=== PATIENT | female | born 1960 | race Caucasian/White ===

== ENCOUNTER 2017-01-20 18:13 | Inpatient (IN) | payer OTHER ==
[~2017-01-20] VITALS: Ht 165.1 cm; Wt 80.8 kg
[2017-01-20 19:41] VITALS: BP 137/85; PULSE 97; RESP 18; O2SAT 92
[2017-01-20] MEDS ORDERED: 0.9% Sodium Chloride 1,000 ML IV SCH (20:28)
[2017-01-20] MEDS ORDERED: Polyethylene Glycol (PEG) 17 Gm Powder PO PRN (20:30)
[2017-01-20] MEDS ORDERED: Alum-Mag Hydrox-Simeth 30 mL Suspension PO PRN (20:30)
[2017-01-20] MEDS ORDERED: Ondansetron 2 mg/mL 2 mL Inj IVPUSH PRN (20:30)
[2017-01-20] MEDS: 0.9% Sodium Chloride 1,000 ML IV ONE (20:45)
[2017-01-20 21:39] LABS: BASOPHILS % (AUTO) 0.1 % (0-3); EOSINOPHILS % (AUTO) 2.9 % (0-5); Mean Corpuscular Hemoglobin 32.3 pg (27.0-35.0); Mean Corpuscular Volume 89.9 fL (81-100); NEUTROPHILS % (AUTO) 69.9 % (40-74); Platelet Count 333 bil/L (150-400)
--- NOTE | 2017-01-20 21:40 | PCM.HPMED ---
Subjective Date of Service Jan 20, 2017 Primary Provider: Admitting Physician: Sheba Cuevas DO Primary Care Physician: Nolan Attending Physician: Sheba Cuevas DO Admit Status: Direct Admit Chief Complaint: Abdominal pain History of Present Illness: Ms. Godinez is a 56-year-old female with reported past medical history of hypertension and hyperlipidemia who presented to the urgent care today secondary to severe stomach pains/cramps times 2 days. Patient states she was feeling normal throughout the weekend when she developed slight stomach cramps on Wednesday night 01/17/2017. This lasted through following day and into Wednesday night when she developed diarrhea. She reports having diarrhea 5-6 times, does not remember any blood in her diarrhea and reports one additional episode this morning which is described as dark green in color. She states accompanying nausea with dizziness and some low-grade fevers at home 99.4 she still has severe stomach cramps, and has not made much to eat or drink in the last few days secondary to this. She also reports mild shortness of breath and mild headache. She denies chest pain, visual problems numbness or tingling in her extremities. She lives in [place] with her daughter, son-in-law and 2 grandchildren none of which are sick. She does state that her elderly mother lives in [place] is currently feeling unwell with similar symptoms. She is not followed by a primary care doctor, last saw a primary care Dr. Vyas over 3 years ago. Reports her last colonoscopy to be 8 years prior and perhaps was reported to have some polyps. She is a daily smoker, drinks hard liquor ( rum and Coke) 4 drinks per week, denies drug use. Reports no history of inflammatory bowel disease. No reported recent antibiotic use or recent hospitalizations. Patient went to the urgent care today and was sent to [facility] for CT imaging which showed "severe inflammation or infection in the terminal ileum. Findings cause an adynamic ileus with possible mild partial physiologic obstruction in the remaining small bowel." Review of Systems: A comprehensive review of systems was conducted with the patient and found to be negative except as above in the history of present illness. Allergies Coded Allergies: No Known Allergies (Unverified , 01/20/17) Home Medications Patient reports not PMH Patient reports hypertension and hyperlipidemia Surgical History Patient reports tubal ligation surgery 1989 Family History Mother with diverticulitis Father suffered from heart attack requiring pacemaker placement and had "colon issues" Sr. 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 She is not , has 5 children and 6 grandchildren Exam Vital Signs Vital Sign - Last Date Time Temp Pulse Resp B/P Pulse Ox O2 Delivery O2 Flow Rate FiO2 01/20/17 19:41 36.7 97 18 137/85 92 Room Air Exam General: Awake and alert laying in hospital bed in no acute distress, well- developed, well-nourished, appropriately interactive. Sister present in room at time of exam HEENT: Normocephalic, atraumatic. External ears without defect. Bilateral xanthomas periorbital area. Pupils equal, round, and reactive to light and accommodation. Anicteric sclerae, moist conjunctivae, and no lid lag. Oropharynx free of erythema and cobble stoning with moist mucosa. Neck: Supple with full range of motion. No jugular venous distension. No bruits. Cardiovascular: Regular rate and rhythm with no murmurs, rubs, or gallops appreciated Pulmonary: Clear to auscultation bilaterally with no crackles, wheezes, or rhonchi. Normal respiratory effort with no use of accessory muscles. Abdomen: Bowel tones present. Soft, tender to palpation 4 quadrants most specifically left upper quadrant, right lower quadrant and epigastric area. Nondistended. No rigidity or guarding Extremities: No clubbing, cyanosis, edema. Mycosis lower extremities. Upper extremity mild clubbing of nails Skin: Normal temperature, poor turgor. Skin appears to be very tanned Neurological: Cranial nerves grossly intact Psychiatric: Normal mood and affect. Alert and oriented to person, place, and time. Lab and Diagnostics X-Rays, CTs and MRIs . CT ABDOMEN AND PELVIS WITH CONTRAST IMPRESSION: 1. Severe inflammation or infection in the terminal ileum. Please correlate for any history of inflammatory bowel disease. Findings cause an adynamic ileus with possible mild partial physiologic obstruction in the remaining small bowel. 2. The transverse and descending colon are decompressed causing wall thickening. Further inflammatory change is also possible. 3. Fatty infiltrated enlarged liver. Small amount of perihepatic fluid is more likely caused by bowel inflammation rather than primary ascites. 4. 2.2 cm left adrenal demonstrated to be an adrenal adenoma on a 01/31/2007 MRI. 5. Chronic left common iliac artery occlusion. Recommend interventional radiology consultation on a nonemergent basis. Dictated by: Ramu Mike M.D. on 01/20/2017 Assessment & Plan Ms. Godinez is a 56-year-old female with reported past medical history of hypertension and hyperlipidemia who was admitted from urgent care today secondary to gastroenteritis with possible SBO Gastroenteritis. Present on admission. Under evaluation Most likely secondary to recent sick contact CT abdomen as above IV fluids 1 L bolus followed by 100 mL per hour Current Labs pending at time of dictation, lab work from urgent care showed elevated WBC~15.7 H&H 16.8/48.4, platelets 373. Sodium 137 and potassium 4.6 Stool PCR pending IV pain medication Clear liquid diet, patient is currently having diarrhea which makes SBO unlikely Tobacco dependence. Present on admission. Ongoing Counseled patient on smoking cessation Nicotine patch when necessary Reported hyperlipidemia. Present on admission. Under evaluation -Lipid panel pending Reported hypertension. Not present on admission. Under evaluation Currently normotensive Left adrenal adenoma 2006 MRI shows a 14 mm left adrenal adenoma, CT from today shows a growth in the adenoma to 2.2 cm Patient normotensive with normal potassium values Most likely a benign finding Continue to monitor as outpatient Patient Status: Patient was admitted under inpatient status with expected length of stay greater than two midnights due to severity of presenting symptoms , risk of adverse event, and complexity of treatment plan. Pain Evaluation: Adequate Pain Control GI Prophylaxis: H2 zaki VTE Prophylaxis: Sub-Q Heparin (Unfractionated) Resuscitation Status: CPR: Attempt Resuscitation Attending Statement The patient was seen and examined together with house staff on 01/20/2017 and I agree with the history, exam and plan as outlined in the note above. JO CADET DO Jan 20, 2017 21:40 Kayley Dye DO Jan 21, 2017 05:53
[2017-01-20 22:09] LABS: Magnesium 1.9 mg/dL (1.6-2.6); TROPONIN T 0.01 ug/L (0.0-0.011)
[2017-01-21 00:03] VITALS: BP 127/85; PULSE 74; RESP 18; O2SAT 93
[2017-01-21] MEDS: Heparin 5,000 Unit/mL Inj SUBQ SCH ×3 (00:38→15:31)
[2017-01-21 04:34] VITALS: BP 124/78; PULSE 83; RESP 18; O2SAT 92
[2017-01-21 06:45] LABS: BASOPHILS % (AUTO) 0.2 % (0-3); EOSINOPHILS % (AUTO) 4.4 % (0-5); MONOCYTES % (AUTO) 9.7 % (4-12); Mean Corpuscular Hemoglobin 31.7 pg (27.0-35.0); Mean Corpuscular Volume 91.4 fL (81-100); Platelet Count 306 bil/L (150-400)
[2017-01-21 09:47] VITALS: BP 117/74; RESP 18; O2SAT 93
--- NOTE | 2017-01-21 12:49 | PCM.PNMED ---
Subjective Date of Service Jan 21, 2017 Subjective abdominal pain improving. diarrhea resolved .tolerating diet .afebrile Exam Vital Signs Vital Sign - Last Date Time Temp Pulse Resp B/P Pulse Ox O2 Delivery O2 Flow Rate FiO2 01/21/17 09:47 36.6 18 117/74 93 Room Air 01/21/17 04:34 83 Exam General: Awake and alert laying in hospital bed in no acute distress, well- developed, well-nourished, appropriately interactive. Sister present in room at time of exam HEENT: Normocephalic, atraumatic. External ears without defect. Bilateral xanthomas periorbital area. Pupils equal, round, and reactive to light and accommodation. Anicteric sclerae, moist conjunctivae, and no lid lag. Oropharynx free of erythema and cobble stoning with moist mucosa. Neck: Supple with full range of motion. No jugular venous distension. No bruits. Cardiovascular: Regular rate and rhythm with no murmurs, rubs, or gallops appreciated Pulmonary: Clear to auscultation bilaterally with no crackles, wheezes, or rhonchi. Normal respiratory effort with no use of accessory muscles. Abdomen: Bowel tones present. Soft, mildly tender to palpation 4 quadrants most specifically left upper quadrant, right lower quadrant and epigastric area. Nondistended. No rigidity or guarding Extremities: No clubbing, cyanosis, edema. Mycosis lower extremities. Upper extremity mild clubbing of nails Skin: Normal temperature, poor turgor. Skin appears to be very tanned Neurological: Cranial nerves grossly intact Psychiatric: Normal mood and affect. Alert and oriented to person, place, and time. IVs and Medications Medications Reviewed: Medications were reviewed in detail Lab and Diagnostics Result Diagram: 01/21/1760801/21/17608 X-Rays, CTs and MRIs . CT ABDOMEN AND PELVIS WITH CONTRAST IMPRESSION: 1. Severe inflammation or infection in the terminal ileum. Please correlate for any history of inflammatory bowel disease. Findings cause an adynamic ileus with possible mild partial physiologic obstruction in the remaining small bowel. 2. The transverse and descending colon are decompressed causing wall thickening. Further inflammatory change is also possible. 3. Fatty infiltrated enlarged liver. Small amount of perihepatic fluid is more likely caused by bowel inflammation rather than primary ascites. 4. 2.2 cm left adrenal demonstrated to be an adrenal adenoma on a 01/31/2007 MRI. 5. Chronic left common iliac artery occlusion. Recommend interventional radiology consultation on a nonemergent basis. Dictated by: Ramu Mike M.D. on 01/20/2017 Assessment & Plan Ms. Godinez is a 56-year-old female with reported past medical history of hypertension and hyperlipidemia who was admitted from urgent care today secondary to gastroenteritis with possible SBO # suspected viral Gastroenteritis. Present on admission. Under evaluation Most likely secondary to recent sick contact CT abdomen as above with Severe inflammation or infection in the terminal ileum IV fluids 1 L bolus followed by 100 mL per hour.discontinue today Current Labs pending at time of dictation, lab work from urgent care showed elevated WBC~15.7 H&H 16.8/48.4, platelets 373. Sodium 137 and potassium 4.6 Stool PCR pending,diarrhea seems to have resolved today IV pain medication Clear liquid diet, advanced as tolerated # Tobacco dependence. Present on admission. Ongoing Counseled patient on smoking cessation Nicotine patch when necessary # Reported hyperlipidemia. Present on admission. Under evaluation -Lipid panel pending # Reported hypertension. Not present on admission. Under evaluation Currently normotensive # Left adrenal adenoma 2006 MRI shows a 14 mm left adrenal adenoma, CT from today shows a growth in the adenoma to 2.2 cm Patient normotensive with normal potassium values Most likely a benign finding Continue to monitor as outpatient # Chronic left common iliac artery occlusion on CT -new diagnosis -will start ASA 81mg daily and atorvastatin 40mg hs -outpatient follow up Patient Status: Patient was admitted under inpatient status with expected length of stay greater than two midnights due to severity of presenting symptoms , risk of adverse event, and complexity of treatment plan. GI Prophylaxis: H2 zaki VTE Prophylaxis: Sub-Q Heparin (Unfractionated) Resuscitation Status: CPR: Attempt Resuscitation Puma Carbajal MD Jan 21, 2017 12:48
[2017-01-21 15:35] VITALS: BP 120/73; PULSE 92; RESP 18; O2SAT 93
[2017-01-21 20:07] VITALS: BP 128/77; PULSE 92; RESP 18; O2SAT 92
[2017-01-22] MEDS: Heparin 5,000 Unit/mL Inj SUBQ SCH ×2 (00:40→07:53)
[2017-01-22 04:33] VITALS: BP 135/83; PULSE 71; RESP 16; O2SAT 94
--- NOTE | 2017-01-22 08:14 | DRSVH ---
PROCEDURE: X-RAY ABDOMEN, ONE VIEW ([id number]) INDICATIONS: 56 year-old female with functional ileus. TECHNIQUE: One view of the abdomen acquired. COMPARISON: [facility], CT, CT ABD PELVIS W CON, 01/20/2017, 16:35. FINDINGS: Surgical changes and devices: None. Bowel: Bowel gas pattern is normal. There has been interval transit of CT oral contrast into the non distended mid and distal colon. Soft tissues: No suspicious abdominal calcifications. Visualized solid organ contours appear normal in size. Bones: No suspicious bony lesions. IMPRESSION: Normal bowel gas pattern, without evidence for obstruction or ileus. Expected interval tr ansit of oral contrast into the mid and distal colon. Dictated by: Randy Cooper M.D. on 01/22/2017 at 8:11 Approved by: Randy Cooper M.D. on 01/22/2017 at 8:12
--- NOTE | 2017-01-22 09:10 | PCM.DIMED ---
Discharge Instructions Date of Service Jan 22, 2017 Dates of Hospitalization Jan 20, 2017 at 18:25 Discharge Diagnosis Discharge Diagnosis # suspected viral Gastroenteritis. Present on admission. resolved # Chronic left common iliac artery occlusion on CT,new diagnosis # Tobacco dependence. Present on admission. Ongoing # Reported hyperlipidemia. Present on admission. # Reported hypertension. Not present on admission. # Left adrenal adenoma, chronic Patient Instructions Patient Instructions # You were hospitalized due to pain and diarrhea. Etiology seems to be due to viral gastroenteritis. No antibiotics required and symptoms resolved. # on CT scan you were noted to have Chronic left common iliac artery occlusion. You will need outpatient vascular surgeon or interventional radiology evaluation.I have also started you on aspirin and atorvastatin. Please follow-up with PCP in 1 week. Follow-up with PCP in: 1 week Puma Carbajal MD Jan 22, 2017 09:10
[2017-01-22] MEDS ORDERED: ASPI81TA3 PO (09:11)
[2017-01-22] MEDS ORDERED: ATOR40TA69 PO (09:11)
--- NOTE | 2017-01-22 16:15 | PCM.DC.MED ---
Discharge Summary Date of Service Jan 22, 2017 Dates of Hospitalization Date of Hospital Admission Jan 20, 2017 at 18:25 Date of Discharge: Jan 22, 2017 Providers: Admitting Physician: Kayley Dye DO Primary Care Physician: Nolan Attending Physician: Puma Clemente MD Diagnosis at Time of Discharge Diagnosis at Time of Discharge # suspected viral Gastroenteritis. Present on admission. resolved # Chronic left common iliac artery occlusion on CT,new diagnosis # Tobacco dependence. Present on admission. Ongoing # Reported hyperlipidemia. Present on admission. # Reported hypertension. Not present on admission. # Left adrenal adenoma, chronic Procedures XRay, CTs & MRIs . CT ABDOMEN AND PELVIS WITH CONTRAST IMPRESSION: 1. Severe inflammation or infection in the terminal ileum. Please correlate for any history of inflammatory bowel disease. Findings cause an adynamic ileus with possible mild partial physiologic obstruction in the remaining small bowel. 2. The transverse and descending colon are decompressed causing wall thickening. Further inflammatory change is also possible. 3. Fatty infiltrated enlarged liver. Small amount of perihepatic fluid is more likely caused by bowel inflammation rather than primary ascites. 4. 2.2 cm left adrenal demonstrated to be an adrenal adenoma on a 01/31/2007 MRI. 5. Chronic left common iliac artery occlusion. Recommend interventional radiology consultation on a nonemergent basis. Dictated by: Ramu Mike M.D. on 01/20/2017 PROCEDURE: X-RAY ABDOMEN, ONE VIEW ([id number]) INDICATIONS: 56 year-old female with functional ileus. IMPRESSION: Normal bowel gas pattern, without evidence for obstruction or ileus. Expected interval transit of oral contrast into the mid and distal colon. Dictated by: Randy Cooper M.D. on 01/22/2017 at 8:11 Brief History Ms. Godinez is a 56-year-old female with reported past medical history of hypertension and hyperlipidemia who presented to the urgent care today secondary to severe stomach pains/cramps times 2 days. Patient states she was feeling normal throughout the weekend when she developed slight stomach cramps on Wednesday night 01/17/2017. This lasted through following day and into Wednesday night when she developed diarrhea. She reports having diarrhea 5-6 times, does not remember any blood in her diarrhea and reports one additional episode this morning which is described as dark green in color. She states accompanying nausea with dizziness and some low-grade fevers at home 99.4 she still has severe stomach cramps, and has not made much to eat or drink in the last few days secondary to this. She also reports mild shortness of breath and mild headache. She denies chest pain, visual problems numbness or tingling in her extremities. She lives in [place] with her daughter, son-in-law and 2 grandchildren none of which are sick. She does state that her elderly mother lives in [place] is currently feeling unwell with similar symptoms. She is not followed by a primary care doctor, last saw a primary care Dr. Vyas over 3 years ago. Reports her last colonoscopy to be 8 years prior and perhaps was reported to have some polyps. She is a daily smoker, drinks hard liquor ( rum and Coke) 4 drinks per week, denies drug use. Reports no history of inflammatory bowel disease. No reported recent antibiotic use or recent hospitalizations. Patient went to the urgent care today and was sent to [facility] for CT imaging which showed "severe inflammation or infection in the terminal ileum. Findings cause an adynamic ileus with possible mild partial physiologic obstruction in the remaining small bowel. Hospital Course Ms. Godinez is a 56-year-old female with reported past medical history of hypertension and hyperlipidemia who was admitted from urgent care today secondary to gastroenteritis with possible SBO # suspected viral Gastroenteritis. Present on admission. Under evaluation Most likely secondary to recent sick contact CT abdomen as above with Severe inflammation or infection in the terminal ileum IV fluids 1 L bolus followed by 100 mL per hour.discontinue 01/21 Stool PCR negative,diarrhea resolved tolerated diet. Discharge abdominal # Chronic left common iliac artery occlusion on CT -new diagnosis - started ASA 81mg daily and atorvastatin 40mg hs -outpatient follow up. New PCP with Dr.Giles Jordan at [facility] . Needs referral for interventional radiology or vascular surgeon -Counseled on smoking cessation. Counseled on risk of having IN and stroke. # Tobacco dependence. Present on admission. Ongoing Counseled patient on smoking cessation Nicotine patch when necessary # Reported hyperlipidemia. Present on admission. Under evaluation -Statin initiated # Reported hypertension. Not present on admission. Under evaluation Currently normotensive # Left adrenal adenoma 2006 MRI shows a 14 mm left adrenal adenoma, CT from today shows a growth in the adenoma to 2.2 cm Patient normotensive with normal potassium values Most likely a benign finding Continue to monitor as outpatient Discharge to home Condition on discharge stable Exam Vital Signs (Last) Date Time Temp Pulse Resp B/P Pulse Ox O2 Delivery O2 Flow Rate FiO2 01/22/17 04:33 36.7 71 16 135/83 94 Room Air Exam General: Awake and alert laying in hospital bed in no acute distress, well- developed, well-nourished, appropriately interactive. Sister present in room at time of exam HEENT: Normocephalic, atraumatic. External ears without defect. Bilateral xanthomas periorbital area. Pupils equal, round, and reactive to light and accommodation. Anicteric sclerae, moist conjunctivae, and no lid lag. Oropharynx free of erythema and cobble stoning with moist mucosa. Neck: Supple with full range of motion. No jugular venous distension. No bruits. Cardiovascular: Regular rate and rhythm with no murmurs, rubs, or gallops appreciated Pulmonary: Clear to auscultation bilaterally with no crackles, wheezes, or rhonchi. Normal respiratory effort with no use of accessory muscles. Abdomen: Bowel tones present. Soft, mildly tender to palpation 4 quadrants most specifically left upper quadrant, right lower quadrant and epigastric area. Nondistended. No rigidity or guarding Extremities: No clubbing, cyanosis, edema. Mycosis lower extremities. Upper extremity mild clubbing of nails Skin: Normal temperature, poor turgor. Skin appears to be very tanned Neurological: Cranial nerves grossly intact Psychiatric: Normal mood and affect. Alert and oriented to person, place, and time. Test 01/20/17 21:25 01/21/17 06:09 Lactic Acid Level 0.8mmol/L (0.4-2.0) Magnesium Level 1.9mg/dL (1.6-2.6) Troponin T 0.010ug/L (0.0-0.011) Lipase 15U/L (13-60) Procalcitonin 0.06ng/mL (0.00-0.08) Thyroid Stimulating Hormone (TSH) 1.730uIU/mL (0.450-4.500) White Blood Count 10.5th/mm3 (3.8-10.1) Red Blood Count 4.64mil/mm3 (3.90-5.20) Hemoglobin 14.7g/dL (12.0-15.6) Hematocrit 42.4% (35.0-46.0) Mean Corpuscular Volume 91.4fL (81-100) Mean Corpuscular Hemoglobin 31.7pg (27.0-35.0) Mean Corpuscular Hemoglobin Concent 34.7% (32.0-37.0) Red Cell Distribution Width 13.5% (12.3-15.4) Platelet Count 306bil/L (150-400) Neutrophils (%) (Auto) 61.0% (40-74) Lymphocytes (%) (Auto) 24.4% (14-46) Monocytes (%) (Auto) 9.7% (4-12) Eosinophils (%) (Auto) 4.4% (0-5) Basophils (%) (Auto) 0.2% (0-3) Sodium Level 140mEq/L (134-144) Potassium Level 4.4mEq/L (3.5-5.2) Chloride Level 104mEq/L (97-108) Carbon Dioxide Level 22mmol/L (18-29) Blood Urea Nitrogen 12mg/dL (6-24) Creatinine 0.73mg/dL (0.57-1.00) Estimat Glomerular Filtration Rate 119mL/min (>59) Glucose Level 108mg/dL (60-99) Calcium Level 8.9mg/dL (8.5-10.1) Total Bilirubin 0.7mg/dL (0.0-1.2) Aspartate Amino Transf (AST/SGOT) 12U/L (0-50) Alanine Aminotransferase (ALT/SGPT) 11U/L (0-32) Alkaline Phosphatase 83U/L (25-150) Total Protein 6.0g/dL (6.4-8.4) Albumin 3.8g/dL (3.4-5.0) Discharge Medications Discharge Medications Aspirin Chew (Aspirin Chew) 81 Mg Chew 81 MG PO DAILY Prescribed by: PUMA CLEMENTE MD Atorvastatin Calcium (Atorvastatin Calcium) 40 Mg Tablet 40 MG PO HS Prescribed by: PUMA CLEMENTE MD Followup Plan Disposition: Home Patient Instructions # You were hospitalized due to pain and diarrhea. Etiology seems to be due to viral gastroenteritis. No antibiotics required and symptoms resolved. # on CT scan you were noted to have Chronic left common iliac artery occlusion. You will need outpatient vascular surgeon or interventional radiology evaluation.I have also started you on aspirin and atorvastatin. Please follow-up with PCP in 1 week. Follow-up with PCP in: 1 week Time spent 45 minutes coordinating discharge and counseling patient on smoking cessation copies to: JO CADET DO; [facility] Puma Clemente MD Jan 22, 2017 16:15
== END 2017-01-22 10:15 | disposition home or self-care (01) | DRG 392 ==
LOC: MPC 18:25
PROVIDERS: ADMIT Internal Medicine; ATTEND Internal Medicine
DX: A08.4 Viral intestinal infection, unspecified (principal); I74.5 Embolism and thrombosis of iliac artery; F17.210 Nicotine dependence, cigarettes, uncomplicated; D35.02 Benign neoplasm of left adrenal gland